=== PATIENT | female | born 1975 | race Caucasian/White ===

== ENCOUNTER 2018-04-12 13:11 | Observation (INO) ==
[2018-04-12] MEDS ORDERED: methylPREDNISolone 125 MG/2 ML VIAL IVP ONE (13:44)
[2018-04-12] MEDS ORDERED: Levofloxacin 500 MG/100 ML 500 MG/100 ML BAG IVPB ONE (13:44)
--- NOTE | 2018-04-12 13:50 | Emergency Department Note ---
Disposition Clinical Impression: Pulmonary edema, COPD (chronic obstructive pulmonary disease), Hypoxia Disposition: Admitted As Inpatient Condition: Fair Referrals: Marzena Ellis MD [Primary Care Provider] - Forms: ED Satisfaction Letter, Work/School Release Time of Disposition: 15:34 (abby) SOB HPI - General Chief Complaint: ED General Medical Stated Complaint: Shortness of breath Time Seen by Provider: 04/12/18 13:15 Source: patient Mode of arrival: ambulatory Limitations: no limitations Nursing Notes Reviewed: Yes Vital Signs Reviewed: Yes - History of Present Illness 42-year-old female who 2 weeks ago was having shortness of breath difficulty breathing was seen by the nurse practitioner at the doctor's office he told her that she had a bronchitis and sent her home with an albuterol inhaler patient states that since this time that she is continue to worsen she was going to call her family physician tomorrow she didn't contact her family physician this sometime this week and asked that she has some steroids and need an antibiotic that she was to be seen tomorrow as result of patient's continued to have worsening shortness of breath leg swelling and edema she's been drinking fluids she's been using her inhaler as often as she can not eating giving breaks in between treatments multiple duo nebs during the course they used her last event today going through what normally would take her a month and less than 2 weeks s he's had cold chills but she said she had no fevers as result she is here in the emergency room to be evaluated Pt Subjective Complaint: shortness of breath Onset (ago): Just [employer] Context: occurred during exertion Severity: moderate Consistency/Duration: constant, gradually worsening Improves with: oxygen Worsens with: exertion Known history of: COPD Associated symptoms: Reports: wheezing, orthopnea, palpitations, other (Edema). Denies: chest pain, pain with inspiration, fever, cough, sputum production, lower extremity pain, polyuria, polydipsia, parasthesias, hemoptysis, diaphoresis, nausea/vomiting, syncope, abdominal pain, sense of impending doom Treatment prior to arrival: oxygen, bronchodilator Cough present: No Sputum production: No - Related Data Home Medications Medication Instructions Recorded Confirmed Albuterol Sulfate [Albuterol 1 puff IH Q4HR PRN 12/07/16 04/12/18 Inhaler] Ipratropium/Albuterol Neb [Duoneb] 3 ml IH Q4HR PRN 12/07/16 04/12/18 Cefdinir [Omnicef] 300 mg PO BID 04/12/18 04/12/18 Losartan/Hydrochlorothiazide 1 tab PO DAILY 04/12/18 04/12/18 [Losartan-Hctz 100-25 mg Tab] predniSONE [PredniSONE] 20 mg PO DAILY 04/12/18 04/12/18 Allergies Allergy/AdvReac Type Severity Reaction Status Date / Time No Known Allergies Allergy Verified 12/07/16 09:11 All systems ED: reviewed and negative except as stated. Review of Systems: As Per HPI Constitutional: Reports: weakness. Denies: fever, chills Eyes: Denies: eye pain, eye discharge ENT ED: Denies: ear pain, throat pain, congestion Cardiovascular: Reports: palpitations, dyspnea on exertion. Denies: chest pain Respiratory: Reports: cough, dyspnea, wheezes, sputum production Gastrointestinal: Denies: abdominal pain, nausea, vomiting Genitourinary: Denies: urgency, dysuria Musculoskeletal: Denies: back pain Integumentary: Denies: rash, abrasion Neurological: Denies: headache, weakness Psychiatric: Reports: anxiety. Denies: depression Endocrine: Denies: fatigue, heat or cold intolerance Hematological/Lymphatic: Denies: easy bleeding Allergic/Immunologic: Denies: facial swelling Past Medical History - Past Medical History Attestation: Yes The following information was validated with the patient. Source: patient, old records reviewed, nursing notes reviewed Medical history: Reports: COPD, coronary artery disease, hyperlipidemia, hypertension, myocardial infarction Psychiatric history: Reports: anxiety, depression - Social History Smoking Status: Current every day smoker Smokeless Tobacco Status: No Alcohol use: Reports: occasionally Drug use: Reports: none Physical Exam - General Limitations: no limitations General appearance: alert, in no apparent distress, anxious - Head Head exam: atraumatic, normocephalic, normal inspection - Eye Eye exam: Present: normal appearance, PERRL, EOMI - ENT ENT exam: normal exam, normal oropharynx, mucous membranes moist, TM's normal bilaterally, normal external ear exam - Neck Neck exam: Present: normal inspection, full ROM, trachea midline - Chest Chest inspection: Present: normal inspection, symmetric chest wall rise - Respiratory Respiratory exam: Present: wheezes, prolonged expiratory phase, other (Crackles) - Cardiovascular Cardiovascular exam: Present: tachycardia, normal heart sounds - Abdominal Exam Abdominal exam: Present: soft, Non-Tender, normal bowel sounds. Absent: mass, pulsatile mass - Expanded Upper Extremity Exam Shoulder exam: Present: normal inspection, full ROM Arm exam: Present: normal inspection, full ROM Elbow exam: Present: normal inspection, full ROM Forearm/Wrist exam: Present: normal inspection, full ROM Hand exam: Present: normal inspection, full ROM Vascular exam: Normal: capillary refill, radial pulse - Expanded Lower Extremity Exam Hip/Pelvis exam: Present: normal inspection, full ROM Upper leg exam: Present: normal inspection, full ROM Knee exam: Present: normal inspection, full ROM Lower leg exam: Present: normal inspection, full ROM, swelling Ankle exam: Present: normal inspection, full ROM, swelling Foot/toe exam: Present: normal inspection, full ROM, swelling Neurovascular/Tendon exam: Present: normal capillary refill, normal fine/light touch. Absent: motor deficit, sensory deficit, tendon deficit Gait: observed and normal - Back Exam Back exam: Present: normal inspection, full ROM. Absent: muscle spasm - Neurological Exam Neurological exam: Present: alert, oriented X3, CN II-XII intact, normal gait - Psychiatric Psychiatric exam: Present: normal affect, normal mood - Skin Skin exam: Present: warm, dry, intact, normal color Course Course Narrative: Patient initially seen and examined patient with having been doing multiple aerosol treatments repeatedly over and over the past couple days this may be part of etiology for causing her to have some tachycardia which then ultimately to her to congestive heart failure because the repeated tachycardia which is ex acerbated by the fact she had a COPD exacerbation patient was then admitted transfer to [facility] Vital Signs Temperature 98.3 F 04/12/18 13:15 Pulse Rate 130 04/12/18 13:15 Respiratory Rate 20 04/12/18 13:15 Blood Pressure 170/102 04/12/18 13:15 O2 Sat by Pulse Oximetry 98 04/12/18 13:15 Temperature 98.3 F 04/12/18 13:15 Pulse Rate 128 04/12/18 13:31 Respiratory Rate 28 04/12/18 13:31 Blood Pressure 180/124 04/12/18 13:31 O2 Sat by Pulse Oximetry 97 04/12/18 13:31 Oxygen Delivery Oxygen Delivery Room Air Shortness of Breath/Dyspnea - Differential Diagnosis Likely: acute exacerbation of chronic obstructive airways disease, congestive heart failure, pneumonia, pulmonary embolism - Medical Records Medical records reviewed: Yes I reviewed the patient's medical records. - Lab Data Lab results reviewed: Yes I reviewed the patient's lab results. Result diagrams: 04/12/18 14:00 04/12/18 14:00 Lab Results 04/12/18 04/12/18 04/12/18 Range/Units 14:00 14:00 14:00 WBC 8.2 (4.3-11.1) K/mcL RBC 4.53 (3.82-4.97) M/mcL Hgb 13.0 (11.5-15.4) g/dL Hct 37.8 (35.3-44.9) % MCV 83.4 (83.0-100.0) fL MCH 28.7 (28.0-33.3) pg MCHC 34.4 (31.6-35.5) g/dL RDW 13.2 (11.5-14.5) % Plt Count 214 (140-400) K/mcL MPV 8.4 L (9.4-12.4) fL Immature Gran % 0.2 (0-4) % Seg Neutrophils % 74.1 % Lymphocytes % 16.3 % Monocytes % 8.1 % Eosinophils % 0.7 % Basophils % 0.6 % Neutrophils # 6.0 (1.6-8.9) K/mcL Lymphocytes # 1.3 (0.6-4.6) K/mcL Monocytes # 0.7 (0.0-1.3) K/mcL Eosinophils # 0.1 (0.0-0.6) K/mcL Basophils # 0.1 (0.0-0.2) K/mcL PT 11.1 (9.4-12.1) Seconds INR 1.0 APTT 33.8 (26.0-36.0) Seconds D-Dimer 779 H (0-500) ng/mLFEU Sodium 135 L (136-145) mEq/L Potassium 3.8 (3.5-5.1) mEq/L Chloride 100 (98-107) mEq/L Carbon Dioxide 24 (23-29) mEq/L BUN 18 (6-20) mg/dL Creatinine 0.84 (0.60-1.20) mg/dL Est GFR ( Amer) > 60 (> 60) Est GFR (Non-Af Amer) > 60 (> 60) BUN/Creatinine Ratio 21 (6-26) Glucose 117 H (70-105) mg/dL Calculated Osmolality 283 (280-300) Lactic Acid (0.5-2.2) mmol/L Calcium 9.4 (8.6-10.3) mg/dL Magnesium 1.7 (1.6-2.6) mg/dL Total Bilirubin 1.2 H (0.3-1.0) mg/dL AST 45 H (13-39) Units/L ALT 66 H (7-52) Units/L Alkaline Phosphatase 67 (34-104) Units/L Troponin I (< 0.04) ng/mL B-Natriuretic Peptide (Less than 100) pg/mL Serum Total Protein 6.9 (6.4-8.9) g/dL Albumin 4.1 (3.5-5.7) g/dL Globulin 2.8 (2.4-3.5) g/dL Albumin/Globulin Ratio 1.5 (1.1-2.2) 04/12/18 04/12/18 04/12/18 Range/Units 14:00 14:00 14:00 WBC (4.3-11.1) K/mcL RBC (3.82-4.97) M/mcL Hgb (11.5-15.4) g/dL Hct (35.3-44.9) % MCV (83.0-100.0) fL MCH (28.0-33.3) pg MCHC (31.6-35.5) g/dL RDW (11.5-14.5) % Plt Count (140-400) K/mcL MPV (9.4-12.4) fL Immature Gran % (0-4) % Seg Neutrophils % % Lymphocytes % % Monocytes % % Eosinophils % % Basophils % % Neutrophils # (1.6-8.9) K/mcL Lymphocytes # (0.6-4.6) K/mcL Monocytes # (0.0-1.3) K/mcL Eosinophils # (0.0-0.6) K/mcL Basophils # (0.0-0.2) K/mcL PT (9.4-12.1) Seconds INR APTT (26.0-36.0) Seconds D-Dimer (0-500) ng/mLFEU Sodium (136-145) mEq/L Potassium (3.5-5.1) mEq/L Chloride (98-107) mEq/L Carbon Dioxide (23-29) mEq/L BUN (6-20) mg/dL Creatinine (0.60-1.20) mg/dL Est GFR ( Amer) (> 60) Est GFR (Non-Af Amer) (> 60) BUN/Creatinine Ratio (6-26) Glucose (70-105) mg/dL Calculated Osmolality (280-300) Lactic Acid 1.0 (0.5-2.2) mmol/L Calcium (8.6-10.3) mg/dL Magnesium (1.6-2.6) mg/dL Total Bilirubin (0.3-1.0) mg/dL AST (13-39) Units/L ALT (7-52) Units/L Alkaline Phosphatase (34-104) Units/L Troponin I < 0.03 (< 0.04) ng/mL B-Natriuretic Peptide 642 H (Less than 100) pg/mL Serum Total Protein (6.4-8.9) g/dL Albumin (3.5-5.7) g/dL Globulin (2.4-3.5) g/dL Albumin/Globulin Ratio (1.1-2.2) - Radiology Data Radiology results reviewed: Yes I reviewed the patient's radiology results. ITS Impressions Chest X-Ray 04/12/18 13:42 IMPRESSION: Findings suggest pulmonary edema. D/ / Regis Laguna MD / Regis Laguna MD Interpreting Provider: Regis Laguna MD Chest CTA 04/12/18 14:21 IMPRESSION: No evidence of acute pulmonary embolism. Motion artifact limits evaluation of the lung bases. Mild nonspecific bilateral ground-glass opacity. Findings may reflect infectious/inflammatory disease or potentially pulmonary edema. There are trace pleural effusions. D/ / Regis Laguna MD / Regis Laguna MD Interpreting Provider: Regis Laguna MD - EKG Data EKG attestation: Yes I reviewed and interpreted this EKG. EKG results narrative: Sinus tach rate 127 ID 141 QRS 100 QT 330 axis 88 Critical Care Time Critical Care Time: Yes Total Critical Care Time: 35 Attestation: 35 min clinically significant life-threatening deterioration excessive reportable procedures as result the patient being tachycardic anxious New pulmonary Edema and etiology is unclear why this occurred because Dr. Dubois make further arrangements for transfer
[2018-04-12] MEDS ORDERED: *HR* Metoprolol 5 MG/5 ML VIAL IVP ONE ×2 (13:58→15:59)
[2018-04-12] MEDS: *HR* Metoprolol 5 MG/5 ML VIAL IVP SCH ×2 (14:00→15:24)
[2018-04-12] MEDS: 0.9 % Sodium Chloride 1,000 ML IVC SCH ×6 (14:02→20:03)
[2018-04-12 14:07] LABS: Basophils # 0.1 K/mcL (0.0-0.2); Basophils % 0.6 %; Eosinophils # 0.1 K/mcL (0.0-0.6); Eosinophils % 0.7 %; Hematocrit 37.8 % (35.3-44.9); Immature Granulocytes % 0.2 % (0-4); Lymphocytes # 1.3 K/mcL (0.6-4.6); Lymphocytes % 16.3 %; Mean Corpuscular HGB Conc 34.4 g/dL (31.6-35.5); Mean Corpuscular Hemoglobin 28.7 pg (28.0-33.3); Mean Corpuscular Volume 83.4 fL (83.0-100.0); Mean Platelet Volume 8.4 fL (9.4-12.4); Monocytes # 0.7 K/mcL (0.0-1.3); Monocytes % 8.1 %; Platelet Count 214 K/mcL (140-400); Red Blood Count 4.53 M/mcL (3.82-4.97); Red Cell Distribution Width 13.2 % (11.5-14.5); Segmented Neutrophils % 74.1 %
[2018-04-12] MEDS ORDERED: Bumetanide 1 MG/4 ML VIAL IVP ONE (14:10)
[2018-04-12 14:15] LABS: Prothrombin Time 11.1 Seconds (9.4-12.1)
[2018-04-12 14:17] LABS: Activated Partial Thrombo Time 33.8 Seconds (26.0-36.0)
[2018-04-12] MEDS ORDERED: Isovue-370 500 ML INFUS..BTL IV ONE (14:21)
[2018-04-12 14:29] LABS: Alanine Aminotransferase 66 Units/L (7-52); Albumin 4.1 g/dL (3.5-5.7); Albumin/Globulin Ratio 1.5 (1.1-2.2); Alkaline Phosphatase 67 Units/L (34-104); Aspartate Amino Transferase 45 Units/L (13-39); BUN/Creatinine Ratio 21 (6-26); Bilirubin,Total 1.2 mg/dL (0.3-1.0); Blood Urea Nitrogen 18 mg/dL (6-20); Calcium 9.4 mg/dL (8.6-10.3); Carbon Dioxide 24 mEq/L (23-29); Chloride 100 mEq/L (98-107); Globulin 2.8 g/dL (2.4-3.5); Glucose 117 mg/dL (70-105); Magnesium 1.7 mg/dL (1.6-2.6); Osmolality,Calculated 283 (280-300); Potassium 3.8 mEq/L (3.5-5.1); Sodium 135 mEq/L (136-145); Total Protein 6.9 g/dL (6.4-8.9); eGFR For Non-African Americans > 60 (> 60)
[2018-04-12] MEDS ORDERED: hydrOXYzine pamoate 25 MG CAPSULE PO STA (15:31)
[2018-04-12] MEDS ORDERED: Naloxone 0.4 MG/ML INJ IVP PRN (15:59)
[2018-04-12] MEDS ORDERED: *HR* Metoprolol 5 MG/5 ML VIAL IVP SCH (15:59)
[2018-04-12] MEDS ORDERED: Ipratropium/Albuterol Neb 3 ML IH SCH (17:00)
[2018-04-12] MEDS: Bumetanide 1 MG/4 ML VIAL IVP SCH (19:03)
[2018-04-12] MEDS: MethylPREDNISolone 40 MG/ML VIAL IVP SCH (19:03)
[2018-04-12] MEDS: Albuterol 2.5 MG/3 ML NEBULIZER IH PRN (23:25)
[2018-04-13] MEDS: MethylPREDNISolone 40 MG/ML VIAL IVP SCH ×3 (02:22→11:56)
[2018-04-13] MEDS: Albuterol 2.5 MG/3 ML NEBULIZER IH PRN ×2 (06:34→16:23)
[2018-04-13 08:45] LABS: Hematocrit 39.3 % (35.3-44.9); Hemoglobin 13.5 g/dL (11.5-15.4); Immature Granulocytes % 0.4 % (0-4); Lymphocytes # 0.4 K/mcL (0.6-4.6); Lymphocytes % 7.3 %; Mean Corpuscular HGB Conc 34.4 g/dL (31.6-35.5); Mean Corpuscular Hemoglobin 28.6 pg (28.0-33.3); Mean Corpuscular Volume 83.3 fL (83.0-100.0); Mean Platelet Volume 9.2 fL (9.4-12.4); Monocytes # 0.2 K/mcL (0.0-1.3); Monocytes % 3.9 %; Neutrophils # 4.9 K/mcL (1.6-8.9); Platelet Count 277 K/mcL (140-400); Red Blood Count 4.72 M/mcL (3.82-4.97); Segmented Neutrophils % 88.4 %
[2018-04-13] MEDS ORDERED: Acetaminophen 325 MG TABLET PO PRN (09:45)
[2018-04-13] MEDS: Losartan/HCTZ 50-12.5 TABLET PO SCH (09:48)
[2018-04-13] MEDS: Aspirin Enteric Coated 81 MG Tablet PO SCH (09:48)
[2018-04-13] MEDS: Bumetanide 1 MG/4 ML VIAL IVP SCH ×2 (09:49→16:24)
[2018-04-13] MEDS ORDERED: ALPRAZolam 1 MG TABLET PO ONE (11:32)
[2018-04-13] MEDS: ALPRAZolam 1 MG TABLET PO SCH ×2 (13:55→20:53)
[2018-04-13] MEDS ORDERED: Levofloxacin 500 MG/100 ML 500 MG/100 ML BAG IVPB SCH (14:00)
--- NOTE | 2018-04-13 14:43 | Internal Med History&Physical ---
Date of Encounter: 04/13/18 Time of Encounter: 12:25 Assessment and Plan (1) Asthmatic bronchitis Current visit: Yes Status: Acute She has been started on Levaquin, Solu-Medrol, and nebulizer treatments. Qualifiers: Asthma severity: unspecified severity Asthma complication type: with acute exacerbation Qualified Code(s): J45.901 - Unspecified asthma with (acute) exacerbation (2) COPD (chronic obstructive pulmonary disease) Current visit: Yes Status: Chronic As above Qualifiers: COPD type: unspecified COPD Qualified Code(s): J44.9 - Chronic obstructive pulmonary disease, unspecified (3) Elevated brain natriuretic peptide (BNP) level Current visit: Yes Status: Acute Echocardiogram will be ordered. (4) CAD (coronary artery disease) Current visit: Yes Status: Chronic Metoprolol and aspirin will be started Qualifiers: Coronary Disease-Associated Artery/Lesion type: [place] artery [place] vs. transplanted heart: [place] heart Associated angina: with stable angina Qualified Code(s): I25.118 - Atherosclerotic heart disease of [place] coronary artery with other forms of angina pectoris (5) Elevated transaminase level Current visit: Yes Status: Acute New since August 2016. Possible NAFLD. Recheck labs in a.m. (6) Hypertension Current visit: Yes Status: Chronic Continue losartan/HCTZ and add Lopressor. Qualifiers: Hypertension type: essential hypertension Qualified Code(s): I10 - Essen tial (primary) hypertension (7) Anxiety and depression Current visit: Yes Status: Acute Xanax has been ordered on a scheduled basis. Internal Medicine - H&P: HPI Chief complaint: Dyspnea and cough Admitted From: Emergency Dept Plans for Post Hospital Care: Home History of present illness: Ms. Osborne is a 42 year old female who came to emergency room stating she had approximately 10 day history of increased cough with dyspnea. She received a Cefdinir prescription from her PCP office. When there was minimal improvement after several days she received a Medrol Dosepak. There was little additional improvement so she came to emergency room. She was evaluated and was felt to have exacerbation of COPD and possible early pulmonary edema. No obvious infiltrate was seen. There was mild nonspecific bilateral groundglass opacity. She was admitted to [facility] floor for ongoing care needs. Respiratory history significant for having smoked since age 20 up to one pack per day. She has not had PFTs but reports being told she has COPD per she does not use home oxygen. Past Med Surg Social Fam HX - Past Medical History Medical history: COPD, coronary artery disease, hyperlipidemia, hypertension, myocardial infarction Psychiatric history: anxiety, depression - Past Surgical History Additional surgical history: ORIF RT WRIST - Social History Smoking Status: Current every day smoker Smokeless Tobacco Status: No Alcohol use: occasionally Drug use: none Internal Medicine - H&P: Meds Albuterol Sulfate [Albuterol Inhaler] 1 puff IH Q4HR PRN 12/07/16 [History] Ipratropium/Albuterol Neb [Duoneb] 3 ml IH Q4HR PRN 12/07/16 [History] Cefdinir [Omnicef] 300 mg PO BID 04/12/18 [History] Losartan/Hydrochlorothiazide [Losartan-Hctz 100-25 mg Tab] 1 tab PO DAILY 04/12/18 [History] predniSONE [PredniSONE] 20 mg PO DAILY 04/12/18 [History] Allergy/AdvReac Type Severity Reaction Status Date / Time No Known Allergies Allergy Verified 12/07/16 09:11 All Systems PM: A 10-system review of systems was performed and is negative for pertinent findings except as documented above in the HPI. Review of systems: Gen.: She states her weight has increased approximately 24 pounds in the past year, unintentionally Cardiovascular: She has history of hypertension. She reports [place] at age 36 followed by a single stent placement. She reports EST 2015 resulted in no additional intervention. She has occasional chest pain on exertion. She denies DVT pulmonary embolus or heart failure. Respiratory: As per history of present illness GI: She denies disorders of her liver gallbladder or exocrine pancreas. She has had abdominal hernia surgical repair. : She denies hematuria dysuria or kidney stones Neurologic: She denies large distribution strokes or seizures. Endocrine: She has history of hyperlipidemia but does not take medication at this time since she has been noncompliant in follow-up at her PCP periodically. She denies diabetes or thyroid disease Hematology/oncology: She denies blood disorders cancers or anemia Psychiatric: She has anxiety and depression but does not take medication at this time. She denies other mental health diagnosis. [place] skeletal: She has intermittent back pain. She has had left knee surgery a nd right wrist fracture surgically repaired. She denies gout. - Constitutional Vitals: Temp Pulse Resp BP Pulse Ox 99.0 F 115 20 145/91 99 04/13/18 11:00 04/13/18 11:00 04/13/18 11:00 04/13/18 11:00 04/13/18 11:00 Exam: Gen.: She is a well-developed overweight female lying in bed who appears dyspneic at rest HEENT: Head is atraumatic and normocephalic. Eyes: EOMI. There is no scleral icterus. Mouth: Mucosa is moist. Neck: Supple and nontender. There is no thyromegaly or adenopathy noted. Heart: Regular without murmurs gallops or ectopics. Rate is approximately 120/m. Lungs: She has prolonged expiratory phase and mild diffuse wheezing. No egophony is heard. Abdomen: Soft and nontender. No masses or guarding are noted. Extremities: There is no cyanosis edema or clubbing noted. Dorsalis pedis and posterior tibial pulses are 1-2 over 2 bilaterally. Neurologic: Mental status: She is talkative and a good historian. Cranial nerves: Smile is symmetric. Forehead wrinkles bilaterally. Tongue protrudes midline. EOMI. Motor: There is no pronator drift. Cerebellar: Finger to nose is intact bilaterally. Skin: Warm and dry Internal Med - H&P Results - Labs CBC & Chem 7: 04/13/18 08:10 04/12/18 14:00 Labs: Short CBC 04/13/18 Range/Units 08:10 WBC 5.6 (4.3-11.1) K/mcL Hgb 13.5 (11.5-15.4) g/dL Hct 39.3 (35.3-44.9) % Plt Count 277 (140-400) K/mcL Neutrophils # 4.9 (1.6-8.9) K/mcL - Impressions ITS Impressions Chest X-Ray 04/12/18 13:42 IMPRESSION: Findings suggest pulmonary edema. D/ / Regis Laguna MD / Regis Laguna MD Interpreting Provider: Regis Laguna MD Chest CTA 04/12/18 14:21 IMPRESSION: No evidence of acute pulmonary embolism. Motion artifact limits evaluation of the lung bases. Mild nonspecific bilateral ground-glass opacity. Findings may reflect infectious/inflammatory disease or potentially pulmonary edema. There are trace pleural effusions. D/ / Regis Laguna MD / Regis Laguna MD Interpreting Provider: Regis Laguna MD
[2018-04-13] MEDS: methylPREDNISolone 125 MG/2 ML VIAL IVP SCH (16:24)
--- NOTE | 2018-04-13 17:47 | Electrocardiograph Report ---
[place] [id number] Test Date: 2018-04-12 Pat Name: Carine Osborne Department: EDP-14 Room: [facility] Gender: F [employer] Lead: : 1975 Requested By: Zulay Mcmillan Order Number: [id number] Reading MD: Melisa Solitario Measurements Intervals [employer] Rate: 126 P: 79 NV: 141 QRS: 88 QRSD: 100 T: 74 QT: 330 QTc: 478 Interpretive Statements Sinus tachycardia Probable left atrial enlargement Low voltage, precordial leads Artifact Electronically Signed On 04-13-2018 17:45:27 EST by Melisa Solitario
[2018-04-13] MEDS: Lactobacillus 1 EACH CAP.SPRINK PO SCH (20:53)
[2018-04-14] MEDS: methylPREDNISolone 125 MG/2 ML VIAL IVP SCH ×2 (00:27→08:23)
[2018-04-14] MEDS: Albuterol 2.5 MG/3 ML NEBULIZER IH PRN ×3 (01:15→10:56)
[2018-04-14 07:10] VITALS: BP 144/90
[2018-04-14 07:47] LABS: Basophils % 0.1 %; Hematocrit 41.2 % (35.3-44.9); Lymphocytes # 0.4 K/mcL (0.6-4.6); Lymphocytes % 4.7 %; Mean Corpuscular Hemoglobin 28.5 pg (28.0-33.3); Mean Corpuscular Volume 83.7 fL (83.0-100.0); Mean Platelet Volume 9.1 fL (9.4-12.4); Monocytes # 0.4 K/mcL (0.0-1.3); Monocytes % 5.5 %; Platelet Count 277 K/mcL (140-400); Red Blood Count 4.92 M/mcL (3.82-4.97); Red Cell Distribution Width 13.1 % (11.5-14.5); Segmented Neutrophils % 88.7 %
[2018-04-14 08:11] LABS: Alanine Aminotransferase 42 Units/L (7-52); Albumin/Globulin Ratio 1.5 (1.1-2.2); Alkaline Phosphatase 58 Units/L (34-104); Aspartate Amino Transferase 21 Units/L (13-39); BUN/Creatinine Ratio 24 (6-26); Bilirubin,Total 0.7 mg/dL (0.3-1.0); Blood Urea Nitrogen 21 mg/dL (6-20); Calcium 9.5 mg/dL (8.6-10.3); Carbon Dioxide 30 mEq/L (23-29); Chloride 98 mEq/L (98-107); Globulin 2.6 g/dL (2.4-3.5); Glucose 160 mg/dL (70-105); Osmolality,Calculated 286 (280-300); Potassium 4.2 mEq/L (3.5-5.1); Sodium 135 mEq/L (136-145); Total Protein 6.6 g/dL (6.4-8.9); eGFR For Non-African Americans > 60 (> 60)
[2018-04-14] MEDS: ALPRAZolam 1 MG TABLET PO SCH (08:22)
[2018-04-14] MEDS: Aspirin Enteric Coated 81 MG Tablet PO SCH (08:22)
[2018-04-14] MEDS: Lactobacillus 1 EACH CAP.SPRINK PO SCH (08:22)
[2018-04-14] MEDS: Losartan/HCTZ 50-12.5 TABLET PO SCH (08:22)
[2018-04-14] MEDS: Bumetanide 1 MG/4 ML VIAL IVP SCH (08:23)
--- NOTE | 2018-04-14 10:11 | Internal Med Progress Note ---
Date of Encounter: 04/14/18 Time of Encounter: 10:00 - Assessment and plan (1) Asthmatic bronchitis Current Visit: Yes Status: Acute Assessment and plan: April 14. Continue Levaquin, lactobacillus, Solu-Medrol, and nebulizer t reatments. Anticipate discharge home tomorrow if stable. Qualifiers: Asthma severity: unspecified severity Asthma complication type: with acute exacerbation Qualified Code(s): J45.901 - Unspecified asthma with (acute) exacerbation (2) COPD (chronic obstructive pulmonary disease) Current Visit: Yes Status: Chronic Assessment and plan: April 14. As above. Qualifiers: COPD type: unspecified COPD Qualified Code(s): J44.9 - Chronic obstructive pulmonary disease, unspecified (3) Elevated brain natriuretic peptide (BNP) level Current Visit: Yes Status: Acute Assessment and plan: April 14. BN peptide decreased to 281. Echocardiogram showed LVEF of 65% with diastolic dysfunction present. Will add Imdur and Norvasc. Increase metoprolol. (4) CAD (coronary artery disease) Current Visit: Yes Status: Chronic Assessment and plan: April 14. Continue aspirin and increase metoprolol. Qualifiers: Coronary Disease-Associated Artery/Lesion type: [place] artery [place] vs. transplanted heart: [place] heart Associated angina: with stable angina Qualified Code(s): I25.118 - Atherosclerotic heart disease of [place] coronary artery with other forms of angina pectoris (5) Elevated transaminase level Current Visit: Yes Status: Acute Assessment and plan: April 14. LFTs normalized (6) Hypertension Current Visit: Yes Status: Chronic Assessment and plan: April 14. Continue losartan/HCTZ. Increase Lopressor and start Norvasc. Qualifiers: Hypertension type: essential hypertension Qualified Code(s): I10 - Essential (primary) hypertension (7) Anxiety and depression Current Visit: Yes Status: Acute Assessment and plan: April 14. Continue Xanax. - Subjective Interval history: April 14. She has no new complaints and feels better. - Constitutional Vitals: Temp Pulse Resp BP Pulse Ox 98 F 91 16 144/90 99 04/14/18 06:00 04/14/18 06:00 04/14/18 07:34 04/14/18 06:00 04/14/18 07:34 Exam: She is resting comfortably in bed. She is less dyspneic. I reviewed her med ications, lab results, and echocardiogram report. Internal Medicine: Result - Labs CBC & Chem 7: 04/14/18 07:26 04/14/18 07:26 Labs: Short CBC 04/14/18 Range/Units 07:26 WBC 7.9 (4.3-11.1) K/mcL Hgb 14.0 (11.5-15.4) g/dL Hct 41.2 (35.3-44.9) % Plt Count 277 (140-400) K/mcL Neutrophils # 7.0 (1.6-8.9) K/mcL BMP 04/14/18 07:26 Sodium 135 L Potassium 4.2 Chloride 98 Carbon Dioxide 30 H BUN 21 H Creatinine 0.87 Glucose 160 H Calcium 9.5 Liver Function 04/14/18 Range/Units 07:26 Total Bilirubin 0.7 (0.3-1.0) mg/dL AST 21 (13-39) Units/L ALT 42 (7-52) Units/L Alkaline Phosphatase 58 (34-104) Units/L Albumin 4.0 (3.5-5.7) g/dL - ABG Interpretation ABG results: PT/INR, D-dimer PT 11.1 Seconds (9.4-12.1) 04/12/18 14:00 D-Dimer 779 ng/mLFEU (0-500) H 04/12/18 14:00 - Impressions Impressions Chest CTA 04/12/18 14:21 IMPRESSION: No evidence of acute pulmonary embolism. Motion artifact limits evaluation of the lung bases. Mild nonspecific bilateral ground-glass opacity. Findings may reflect infectious/inflammatory disease or potentially pulmonary edema. There are trace pleural effusions. D/ / Regis Laguna MD / Regis Laguna MD Interpreting Provider: Regis Laguna MD Echocardiogram 04/13/18 12:53 Impressions: LVEF 65%. LV diastolic dysfunction with elevated filling pressures. Normal right ventricular structure and function. Bi-atrial enlargement. Mild tricuspid regurgitation. Mild pulmonic regurgitation. Moderate-severe mitral regurgitation. Mitral valve structure not optimally visualized. Moderate-severe pulmonary hypertension. Consider ROSARIO for better evaluation of the mitral valve structure. Left Ventricular Wall Motion: Rest Echo Findings The mid inferior lateral and basal inferior lateral ortiz were not visualized. All other wall segments showed normal motion. Findings: Study Quality * Technically adequate exam. ECG Findings * Sinus tachycardia. Left Ventricle * LVEF 65%. * LV diastolic dysfunction with elevated filling pressures. * LV chamber size and wall thickness are grossly normal. Right Ventricle * Normal right ventricular structure and function. Left Atrium * Moderately dilated left atrium. Right Atrium * Moderately dilated right atrium. Aortic Valve * No aortic regurgitation. * Aortic valve not well visualized. * No aortic stenosis. Tricuspid Valve * Tricuspid valve not well visualized. * Mild tricuspid regurgitation. * Estimated RA pressure is 20 mmHg. * Estimated RVSP is 60 mmHg. * Moderate-severe pulmonary hypertension. Pulmonic Valve * Pulmonic valve is not well visualized. * No pulmonic stenosis. * Mild pulmonic regurgitation. Pulmonary Artery * Pulmonary artery not well visualized. Aorta * Normally sized aortic root. Pericardium * There is no pericardial effusion present. Mitral Valve * Moderate-severe mitral regurgitation. * Mitral valve structure not optimally visualized. * No mitral stenosis. Interatrial Septum * No evidence of PFO by color Doppler. IVC * The IVC is dilated. * < 50% respiratory change. Consult Discharge Plan - Plan Referrals: Marzena Ellis MD [Primary Care Provider] - 1 week
[2018-04-14] MEDS ORDERED: amLODIPine 5 MG TABLET PO SCH (10:15)
--- NOTE | 2018-04-14 11:37 | Discharge Summary ---
Orders not resulted at time of discharge: Pending orders 04/12/18 14:00 Culture,Blood [BC] Stat 04/15/18 04:00 B-Type Natriuretic Peptide AM 0400 Basic Metabolic Panel AM 0400 Complete Blood Count [HEME] AM 0400 Date of Encounter: 04/14/18 Time of Encounter: 11:24 - Discharge Diagnosis (1) Asthmatic bronchitis Priority: Primary Status: Acute Qualifiers: Asthma severity: unspecified severity Asthma complication type: with acute exacerbation Qualified Code(s): J45.901 - Unspecified asthma with (acute) exacerbation (2) COPD (chronic obstructive pulmonary disease) Priority: Secondary Status: Chronic Qualifiers: COPD type: unspecified COPD Qualified Code(s): J44.9 - Chronic obstructive pulmonary disease, unspecified (3) Diastolic heart failure Priority: Secondary Status: Chronic Qualifiers: Heart failure chronicity: chronic Qualified Code(s): I50.32 - Chronic diastolic (congestive) heart failure (4) CAD (coronary artery disease) Priority: Secondary Status: Chronic Qualifiers: Coronary Disease-Associated Artery/Lesion type: [place] artery [place] vs. transplanted heart: [place] heart Associated angina: with stable angina Qualified Code(s): I25.118 - Atherosclerotic heart disease of [place] coronary artery with other forms of angina pectoris (5) Elevated transaminase level Priority: Secondary Status: Resolved (6) Hypertension Priority: Secondary Status: Chronic Qualifiers: Hypertension type: essential hypertension Qualified Code(s): I10 - Essential (primary) hypertension (7) Anxiety and depression Priority: Secondary Status: Acute Hospital course: Ms. Osborne is a 42 year old female who came to emergency room stating she had approximately 10 day history of increased cough with dyspnea. She received a Cefdinir prescription from her PCP office. When there was minimal improvement after several days she received a Medrol Dosepak. There was little additional improvement so she came to emergency room. She was evaluated and was felt to have exacerbation of COPD and possible early pulmonary edema. No obvious infiltrate was seen. There was mild nonspecific bilateral groundglass opacity. She was admitted to [facility] floor for ongoing care needs. Initial orders were written by the emergency room physician. I saw her on April 13 and performed a history and physical. She was started on Levaquin with IV steroids and nebulizer treatments in emergency room. She felt sig nificantly improved when I saw her on April 14 and wished to be discharged home. I offered her staying additional day in the hospital but she declined stating that she felt she could do well at home. She will continue with antibiotic and probiotic with prednisone for 3 additional days at home. Echocardiogram was done to follow-up on elevated BNP peptide. The LVEF was 65%. There was reported diastolic dysfunction without E/A ratio recorded. There was LAE at 4.50 cm. YESENIA was reported without measurement recorded. There was mild tricuspid regurgitation, mild pulmonic regurgitation, and moderate to severe mitral regurgitation although mitral valve was not optimally visualized. There was moderate to severe pulmonary hypertension with estimated RVSP of 60 mmHg. I reviewed the echocardiogram report with her. I told her medication might alleviate symptoms but as disease progresses she may need to be considered for mitral valve repair/replacement. She was started on metoprolol and the tachycardia resolved. She will continue Toprol-XL at home. Imdur and amlodipine will be added to losartan/HCTZ to improve blood pressure control and heart failure symptoms. Room air oximetry will be checked on 6 minute walk prior to discharge. I encouraged her to become a nonsmoker immediately. Elevated transaminase levels normalized by day of discharge. She was started on scheduled Xanax 1 mg twice a day for anxiety and seemed significantly improved on this dose by day of discharge. She will follow with her PCP Dr. Ellis within 1 week. - Time Spent with Patient Total time spent providing and/or coordinating discharge services: - Discharge Medications Prescriptions: ALPRAZolam [Xanax 1 MG Tablet] 1 mg PO BID 7 Days #14 tablet amLODIPine [Norvasc] 2.5 mg PO DAILY #15 tablet Bumetanide [Bumex] 1 mg PO DAILY #30 tablet Isosorbide MONOnitrate (24 HR) [Imdur] 30 mg PO DAILY #30 tab.er.24h Lactobacillus [Culturelle] 1 each PO BID #6 cap.sprink levoFLOXacin [Levaquin] 500 mg PO DAILY #3 tablet Metoprolol Succinate [Toprol Xl] 100 mg PO DAILY #30 tab.er.24h predniSONE [PredniSONE] 20 mg PO BIDWM #6 tablet Home Medications: Albuterol Sulfate [Albuterol Inhaler] 1 puff IH Q4HR PRN 12/07/16 [History] Ipratropium/Albuterol Neb [Duoneb] 3 ml IH Q4HR PRN 12/07/16 [History] Losartan/Hydrochlorothiazide [Losartan-Hctz 100-25 mg Tab] 1 tab PO DAILY 04/12/18 [History] ALPRAZolam [Xanax 1 MG Tablet] 1 mg PO BID 7 Days #14 tablet 04/14/18 [Rx] Aspirin Enteric Coated [Aspirin EC] 81 mg PO DAILY tablet. 04/14/18 [Rx] Bumetanide [Bumex] 1 mg PO DAILY #30 tablet 04/14/18 [Rx] Isosorbide MONOnitrate (24 HR) [Imdur] 30 mg PO DAILY #30 tab.er.24h 04/14/18 [Rx] Lactobacillus [Culturelle] 1 each PO BID #6 cap.sprink 04/14/18 [Rx] Metoprolol Succinate [Toprol Xl] 100 mg PO DAILY #30 tab.er.24h 04/14/18 [Rx] amLODIPine [Norvasc] 2.5 mg PO DAILY #15 tablet 04/14/18 [Rx] levoFLOXacin [Levaquin] 500 mg PO DAILY #3 tablet 04/14/18 [Rx] predniSONE [PredniSONE] 20 mg PO BIDWM #6 tablet 04/14/18 [Rx] Allergies/Adverse Reactions: Allergy/AdvReac Type Severity Reaction Status Date / Time No Known Allergies Allergy Verified 12/07/16 09:11 Date of admission: 04/12/18 15:46 Primary care physician: Marzena Ellis Consults: 04/12/18 15:59 Consult to Cardiac Rehabilitation-Phase1 [CONS] Routine Comment: Reason for Consult: heart failure Call Completed: Yes Consult to Nurse Navigator [CONS] Routine Comment: Consult to Nurse Navigator [CONS] Routine Comment: - Constitutional Vitals: Temp Pulse Resp BP Pulse Ox 98 F 91 18 144/90 88 04/14/18 06:00 04/14/18 06:00 04/14/18 10:57 04/14/18 06:00 04/14/18 10:59 - Patient Status Disposition: Home, Self-Care Condition: Fair - Discharge Instructions Follow Up With: Marzena Ellis MD [Primary Care Provider] - 1 week - Diet and Activity Activity: resume usual activities as tolerated Diet: advance to your usual diet
[2018-04-15] MEDS ORDERED: Isosorbide MONOnitrate (24 HR) 30 MG TAB.ER.24H PO SCH (09:00)
== END 2018-04-14 13:11 | disposition home or self-care (01) ==
LOC: INPPIK 13:11 → EMEROOPIK 13:11 → INPPIK 16:25
PROVIDERS: ADMIT Internal Medicine; ATTEND Internal Medicine